=== PATIENT | female | born 1995 | race Caucasian/White ===

== ENCOUNTER 2022-05-22 17:50 | Outpatient (CLI) | payer BC, SELFPAY ==
[2022-05-22 18:05] LABS: Hematocrit 39.6 % (37.0-47.0); Hemoglobin 11.8 g/dL (12.0-15.0); Mean Corpuscular HGB Conc 29.8 g/dl (32-36); Mean Corpuscular Hemoglobin 22.9 pg (26-34); Mean Corpuscular Volume 76.9 fl (80-100); Mean Platelet Volume 9.5 fl (7.4-10.4); Platelet Count Result 290 k/mm3 (150-375); Red Blood Count 5.15 M/mm3 (4.2-5.4); Red Cell Distribution Width 15.2 % (11.5-14.5); White Blood Count 10.8 K/mm3 (4.5-10.0)
[2022-05-22 18:31] LABS: Beta HCG Quantitative < 2.39 mIU/ML
== END 2022-05-22 17:51 | disposition home or self-care (01) ==
PROVIDERS: PCP Internal Medicine; Visit Provider Obstetrics & Gynecology
DX: N92.6 Irregular menstruation, unspecified (principal)
CPT/HCPCS: 36415; 84702; 85027

== ENCOUNTER → 2022-09-23 11:32 | Outpatient (CLI) | payer BC, SELFPAY ==
--- NOTE | ~2022-09-23 | XR_ITS ---
EXAMINATION: XR chest 2V 09/23/2022 11:44 INDICATION: Cough with shortness of breath PROCEDURE: 2 view chest COMPARISON: No prior studies for comparison. FINDINGS: The lungs are clear. The cardiomediastinal silhouette is within normal limits. There are no pleural effusions. There is no pneumothorax suspected. IMPRESSION: 1: NO ACUTE CARDIOPULMONARY DISEASE. Reviewed, dictated and finalized at location L. ER PRESS SUPERVISOR
== END ==
PROVIDERS: PCP Nurse Practitioner; Visit Provider Nurse Practitioner
DX: R05.9 Cough, unspecified (principal); R06.02 Shortness of breath
CPT/HCPCS: 71046

== ENCOUNTER 2022-10-07 08:32 | Emergency (ER) | payer BC, SELFPAY ==
[2022-10-07 08:43] VITALS: BP 107/85; PULSE 129; RESP 16; TEMP 37.1; O2SAT 100
--- NOTE | 2022-10-07 08:53 | ED.URI ---
HPI - URI/Sore Throat General Chief Complaint: Upper Respiratory Infection Stated Complaint: cough,congestion,chest pain when coughing Time Seen by Provider: 10/07/22 08:53 Source: patient Mode of arrival: ambulatory Limitations: no limitations History of Present Illness HPI Narrative: Patient is a 27-year-old female presenting with congestion and cough. Was seen on the with cough symptoms and was given a Medrol Dosepak. Patient states cough improved but never went away. This morning patient complaining of increased congestion and productive cough, following a headache last night. Denies any sore throat, ear pain, fever and chills Related Data Allergies Allergy/AdvReac Type Severity Reaction Status Date / Time diphenhydramine Allergy Severe throat Verified 10/07/22 08:54 [From Maura] gilmar treviño Review of Systems Review of Systems: All systems reviewed & are unremarkable except as noted in HPI and below Constitutional: Constitutional: Denies body ache(s), Denies fever(s), Denies headache(s), Denies malaise and Denies weakness Eyes: Eyes: Reports no additional eye complaints and Denies loss of vision ENT: Reports system reviewed and no additional complaints, except as documented, Denies otalgia, Reports headache(s), Reports nasal congestion, Denies sinus pain and Denies sore throat Cardiovascular: Cardiovascular: Reports no additional cardiovascular complaints, Denies chest pain, Denies irregular heart rhythm and Denies dyspnea Respiratory: Respiratory: Reports no additional respiratory complaints, Reports cough and Denies dyspnea Gastrointestinal: Gastrointestinal: Reports no additional gastrointestinal complaints, Denies abdominal pain, Denies melena, Denies hematochezia, Denies diarrhea, Denies nausea and Denies vomiting Musculoskeletal: Musculoskeletal: Reports no additional musculoskeletal complaints, Denies back pain, Denies myalgias and Denies arthralgias Integumentary/Breasts: Skin/Breast: Reports system reviewed and no additional complaints, except as docu, Denies pruritus and Denies rash Neurologic: Reports system reviewed and no additional complaints, except as documented, Denies headache(s), Denies loss of vision and Denies weakness Psychiatric: Psychiatric: Reports no additional psychiatric complaints PMFSH Past Medical History Medical History Dog bite of calf Encounter for IUD insertion Fracture closed, fibula, shaft Hypothyroid Iron (Fe) deficiency anemia Kidney cyst, acquired Migraine Pap smear of cervix shows high risk HPV present Thyroid nodule Surgical History Surgical History History of colposcopy (~05/07/22) ECC Benign Family History Family History Father Diabetes mellitus Depression Mother Thyroid disorder Endometriosis Social History Social History Smoking status: Former smoker Tobacco type: cigarettes Smoking end date: 08/03/16 Alcohol intake: current Drinks per week: 2 Alcohol use details: wine Substance use: never Substance use type: does not use Lack of Transportation: No Lack of Food: Sometimes True Current Housing: I Have Housing Concerned About Future Housing: No Difficulty Paying Gas/Electric Bills: YES Difficulty Paying for Meds: No Currently Unemployed: No Education: High School Diploma/GED Difficulty w/ Childcare or Family Care: No Living arrangements: other Additional living arrangements comments: Engaged 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
== END 2022-10-07 09:07 | disposition home or self-care (01) ==
PROVIDERS: Emergency Provider Nurse Practitioner Family; PCP Nurse Practitioner
DX: J20.9 Acute bronchitis, unspecified (principal); E03.9 Hypothyroidism, unspecified; Z87.891 Personal history of nicotine dependence
CPT/HCPCS: 99213; G0463

== ENCOUNTER 2023-11-04 08:38 | Outpatient (CLI) | payer BC, SELFPAY ==
[2023-11-04 12:18] LABS: Basophils Percent Auto 0.4 % (0.2-1.2); Eosinophils Absolute Auto 0.3 K/mm3 (0-0.3); Eosinophils Percent Auto 2.6 % (0-4.4); Hematocrit 40.6 % (37.0-47.0); Hemoglobin 12.7 g/dL (12.0-15.0); Immature Granulocyte Absolute 0.04 K/mm3 (0.00-0.031); Immature Granulocyte Percent A 0.4 % (0-0.5); Lymphocytes Absolute Auto 2.93 K/mm3 (0.9-3.2); Lymphocytes Percent Auto 30.3 % (18.3-44.2); Mean Corpuscular HGB Conc 31.3 g/dl (32-36); Mean Corpuscular Volume 83.2 fl (80-100); Mean Platelet Volume 10.3 fl (7.4-10.4); Monocytes Absolute Auto 0.5 K/mm3 (0.1-0.6); Monocytes Percent Auto 5.3 % (2.6-8.5); Neutrophils Absolute Auto 5.9 K/mm3 (1.3-6.7); Platelet Count Result 226 k/mm3 (150-375); Red Blood Count 4.88 M/mm3 (4.2-5.4); Red Cell Distribution Width 13.9 % (11.5-14.5); White Blood Count 9.7 K/mm3 (4.5-10.0)
[2023-11-04 12:27] LABS: Alanine Aminotransferase 12 U/L (6-35); Albumin Level 4.4 g/dL (3.5-5.1); Alkaline Phosphatase 97 U/L (38-126); Anion Gap 4 mmol/L (4-12); Aspartate Amino Transferase 36 U/L (14-36); Bilirubin,Total 0.6 mg/dL (0.2-1.3); Blood Urea Nitrogen 19 mg/dL (7-17); Calcium 9.1 mg/dL (8.4-10.2); Carbon Dioxide 27 mmol/L (22-30); Chloride 106 mmol/L (98-107); Cholesterol 170 mg/dL (0-200); Estimated Glomerular Filt Rate > 60; Glucose 93 mg/dL (65-110); HDL Direct 36 mg/dL; Sodium 137 mmol/L (137-145); Triglycerides 174 mg/dL (<150)
[2023-11-04 12:38] LABS: LDL Cholesterol Direct 106 mg/dL
[2023-11-04 22:25] LABS: Iron 63 ug/dL (37-170)
[2023-11-04 22:35] LABS: Percent Iron Saturation 15 % (20-50)
[2023-11-05 00:38] LABS: Hemoglobin A1C 4.7 % (<5.7)
== END 2023-11-04 08:39 | disposition home or self-care (01) ==
LOC: ANHGOSHLAB 08:39
PROVIDERS: PCP Nurse Practitioner; Visit Provider Clinical Nurse Specialist
DX: D50.8 Other iron deficiency anemias (principal); G43.909 Migraine, unspecified, not intractable, without status migrainosus; R53.83 Other fatigue; Z13.220 Encounter for screening for lipoid disorders; Z13.29 Encounter for screening for other suspected endocrine disorder; R74.8 Abnormal levels of other serum enzymes
CPT/HCPCS: 36415; 80053; 80061; 82728; 83036; 83540; 83550; 84443; 85025

== ENCOUNTER 2023-11-10 14:52 | Outpatient (CLI) | payer BC, SELFPAY ==
[2023-11-10 19:50] LABS: Vitamin D 25 Hydroxy 27.8 ng/mL
[2023-11-10 21:03] LABS: Folic Acid 13.9 ng/mL (2.76->20)
== END 2023-11-10 14:53 | disposition home or self-care (01) ==
LOC: ANHGOSHLAB 14:53
PROVIDERS: PCP Nurse Practitioner; Visit Provider Nurse Practitioner
DX: D64.9 Anemia, unspecified (principal); E53.8 Deficiency of other specified B group vitamins; E55.9 Vitamin D deficiency, unspecified
CPT/HCPCS: 36415; 82306; 82607; 82746

== ENCOUNTER 2024-01-21 10:37 | Outpatient (CLI) | payer BC, SELFPAY ==
[2024-01-22 11:53] LABS: Prolactin 4.9 ng/mL
[2024-01-26 18:09] LABS: Anti Mullerian Hormone,Female 5.53 ng/mL (0.69-13.39)
== END 2024-01-21 10:38 | disposition home or self-care (01) ==
LOC: ANHGOSHLAB 10:38
PROVIDERS: PCP Nurse Practitioner; Visit Provider Obstetrics & Gynecology
DX: N91.2 Amenorrhea, unspecified (principal)
CPT/HCPCS: 36415; 84146; 84443

== ENCOUNTER 2024-02-12 15:35 | Outpatient (CLI) | payer BC, SELFPAY ==
[2024-02-12 15:52] LABS: Hematocrit 35.6 % (37.0-47.0); Hemoglobin 11.3 g/dL (12.0-15.0); Mean Corpuscular HGB Conc 31.7 g/dl (32-36); Mean Corpuscular Hemoglobin 25.9 pg (26-34); Mean Corpuscular Volume 81.5 fl (80-100); Mean Platelet Volume 9.7 fl (7.4-10.4); Platelet Count Result 223 k/mm3 (150-375); Red Blood Count 4.37 M/mm3 (4.2-5.4); White Blood Count 10.8 K/mm3 (4.5-10.0)
== END 2024-02-12 15:36 | disposition home or self-care (01) ==
LOC: ANHLAB 15:36
PROVIDERS: PCP Nurse Practitioner; Visit Provider Obstetrics & Gynecology
DX: N92.6 Irregular menstruation, unspecified (principal)
CPT/HCPCS: 36415; 85027

== ENCOUNTER 2024-02-18 01:54 | Day surgery (SDC) | payer BC, SELFPAY ==
[2024-02-11 13:17] VITALS: BMI 32.6
--- NOTE | 2024-02-11 13:18 | PC.NURSE ---
Report to the Outpatient Waiting Room, entrance under the green pavilion located off [facility], at time _0845_ on date _[id number]_. Planned Procedure Time: _1045_. Time changes happen often and if your time is changed the preop area will call you the afternoon before. - You and your visitor will be asked to self-screen and do not enter if you have any COVID symptoms. - A mask is optional within the hospital at this time. Patients may have clear liquids (water, carbonated beverages, clear teas, apple juice) until 3 hours prior to surgery with a maximum of 20 ounces. - No food from midnight until time of surgery Take the following medications with a SIP of water the morning of surgery: ____None DO NOT STOP ANY OF YOUR OTHER PRESCRIPTION MEDICATIONS PRIOR TO SURGERY ?EXCEPT THE FOLLOWING Medications to discontinue per physician Vitamins and fish oil Date to take last ulgn____[phone] Please no make-up, nail grenadian, hairspray, perfume, deodorant, or body powder the day of surgery. No jewelry (including any body piercings) or valuables the day of surgery, leave them at home. Please take a shower or bath the night before, or the morning of, surgery with an antibacterial soap. Wear comfortable, loose fitting clothing. - Jewelry must be removed prior to entering the operating room. Rings and piercings that are not removed may be cut off. - The hospital will not accept responsibility for valuables. - Please leave all valuables, including medications, at home the day of surgery. If you are going home after surgery, a licensed pick up and delivery driver must drive you home. - NO public transportation without another adult if you receive anesthesia. - We recommend that an adult stay with you for 24 hours following discharge. - We also recommend that you do not drive, make important decision, drink alcoholic beverages, or take any drugs that were not prescribed by your health care provider for at least 24 hours after your discharge time. Follow any additional instructions given to you from your surgeon. If you or anyone in your household have experienced Covid symptoms in the past week, please notify your surgeon or the nurse liaison at the phone number below for possible testing. Telephone instructions given to __Landongary___and asked if any additional questions and then verbalized understanding. Patient advised to call surgeon office or pre surgery nurse liaison [phone] if any additional questions.
--- NOTE | 2024-02-16 17:36 | PM.IMHP ---
H&P: HPI History of Present Illness Date/Time: 02/16/24 17:36 28-year-old 1 para 0010 female presents for evaluation of irregular vaginal bleeding and endometrial hypertrophy. IUD was removed approximately 6 months ago and since that time had just 2 cycles, was given progesterone as withdrawal bleed and has been bleeding fairly heavily since that time. Ultrasound revealed mildly enlarged uterus with endometrial hypertrophy of 15mm. She and her are also interested in so after this procedure and if all is normal will likely initiate letrozole therapy. Chief Complaint: Menorrhagia Review of Systems Review of Systems: All systems reviewed & are unremarkable except as noted in HPI and below PMFSH Past Medical History Medical History Dog bite of calf Ear infection Encounter for IUD insertion Encounter for removal of intrauterine contraceptive device Fracture closed, fibula, shaft Hypothyroid Iron (Fe) deficiency anemia Kidney cyst, acquired Migraine Pap smear of cervix shows high risk HPV present Thyroid nodule Surgical History Surgical History History of colposcopy (~05/07/22) ECC Benign History of gynecological procedure (05/23/22) benny iud insertion Benny IUD removal Family History Family History Father Diabetes mellitus Depression Mother Thyroid disorder Endometriosis Social History Social History Smoking packs per day: 0.5 Smoking cigarettes per day: 10.0 Years smoked: 2 Smoking pack-years: 1.00 Smoking status: Former smoker Tobacco type: cigarettes Second hand tobacco smoke exposure: Yes Smoking end date: 02/10/23 Alcohol intake: current Drinks per week: 1 Alcohol use details: wine Substance use: never Substance use type: does not use Do You Feel Safe in your Home?: Yes Lack of Transportation: No Lack of Food: Never True Current Housing: I Have Housing Concerned About Future Housing: No Difficulty Paying Gas/Electric Bills: YES Difficulty Paying for Meds: No Currently Unemployed: No Education: High School Diploma/GED Difficulty w/ Childcare or Family Care: No Living arrangements: with family Additional living arrangements comments: 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 Gender identity (if verbalized by the patient): Female Sexual Orientation (if Verbalized by the Patient): Straight or Heterosexual Spiritual care concerns: No Agree to blood products: Yes Meds Home Medications and Allergies Home Medications Medication Instructions Recorded Confirmed Type vit no.[id number] 1 tablet PO DAILY 11/10/23 02/11/24 History [ Plus Vitamin-Mineral] cholecalciferol (vitamin D3) 50 50 mcg PO DAILY 12/30/23 02/11/24 History mcg (2,000 unit) capsule omega-3 fatty acids 500 mg capsule 500 mg PO DAILY 12/30/23 02/11/24 History Allergies Allergy/AdvReac Type Severity Reaction Status Date / Time diphenhydramine Allergy Severe throat Verified 02/11/24 13:11 [From Benadryl] gilmar treviño Exam Const: General: cooperative and healthy appearing Resp: Effort & Inspection: normal respiratory effort Auscultation: clear to auscultation bilaterally Cardio: Rate: regular rate Rhythm: regular rhythm GI: Inspection: normal to inspection Auscultation: normal bowel sounds : External Female Exam: normal external appearance Speculum Exam - Vagina: normal appearance of the vagina Speculum Exam - Cervix: normal appearance of the cervix Bimanual exam- vagina & uterus: enlarged ( 8-10 week size) Bimanual Exam- Adnexa, other: normal adnexae Assessment and Plan Assessment and plan (1) Menorrhagi
--- NOTE | 2024-02-18 08:55 | WPDHPUPDATE1 ---
History and Physical Update Update Date/Time: 02/18/24 08:55 History and Physical has been reviewed, including an updated exam of the patient. There are NO changes in the patient's condition. Risks, benefits, and alternatives have been discussed and questions answered. Patient agrees to proceed with procedure.
[2024-02-18] MEDS: ACETAMINOPHEN 500 MG TABLET 1000 MG PO (09:30)
[2024-02-18] MEDS: LACTATED RINGERS 1,000 ML 30 ML IV CONT (09:30)
--- NOTE | 2024-02-18 10:18 | WPDANESEPPF ---
Anes - Initial Pre Proc Eval Procedure: Operation Date: 02/18/24 10:45 Proposed Procedures p Hysteroscopy Dilation and Curettage - Neto Smith MD Date/Time: 02/18/24 10:18 Surgeon: Neto Smith MD Pre Op Diagnosis: Endometrial Hyperplasia Patient Data Age: 28 Gender: F Height: 1.47 m Weight: 70.9 kg Allergies Allergy/AdvReac Type Severity Reaction Status Date / Time diphenhydramine Allergy Severe throat Verified 02/11/24 13:11 [From Benadryl] swells, hives Home Medications Medication Instructions Recorded Confirmed Type vit no.[id number] 1 tablet PO DAILY 11/10/23 02/11/24 History [ Plus Vitamin-Mineral] cholecalciferol (vitamin D3) 50 50 mcg PO DAILY 12/30/23 02/11/24 History mcg (2,000 unit) capsule omega-3 fatty acids 500 mg capsule 500 mg PO DAILY 12/30/23 02/11/24 History Patient hx anesthesia problems: none Family hx anesthesia problems: none Results Review: All pre-operative results and documents have been reviewed as part of the pre-operative evaluation. [facility] Past Medical History Medical History Dog bite of calf Ear infection Encounter for IUD insertion Encounter for removal of intrauterine contraceptive device Fracture closed, fibula, shaft Hypothyroid Iron (Fe) deficiency anemia Kidney cyst, acquired Migraine Pap smear of cervix shows high risk HPV present Thyroid nodule Surgical History Surgical History History of colposcopy (~05/07/22) ECC Benign History of gynecological procedure (05/23/22) benny iud insertion Benny IUD removal Family History Family History Father Diabetes mellitus Depression Mother Thyroid disorder Endometriosis Social History Social History Smoking packs per day: 0.5 Smoking cigarettes per day: 10.0 Years smoked: 2 Smoking pack-years: 1.00 Smoking status: Former smoker Tobacco type: cigarettes Second hand tobacco smoke exposure: Yes Smoking end date: 02/10/23 Alcohol intake: current Drinks per week: 1 Alcohol use details: wine Substance use: never Substance use type: does not use Do You Feel Safe in your Home?: Yes Lack of Transportation: No Lack of Food: Never True Current Housing: I Have Housing Concerned About Future Housing: No Difficulty Paying Gas/Electric Bills: YES Difficulty Paying for Meds: No Currently Unemployed: No Education: High School Diploma/GED Difficulty w/ Childcare or Family Care: No Living arrangements: with family Additional living arrangements comments: 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 Gender identity (if verbalized by the patient): Female Sexual Orientation (if Verbalized by the Patient): Straight or Heterosexual Spiritual care concerns: No Agree to blood products: Yes Anes - Eval Final PreProcedure Day of Procedure 02/18/24 10:18 Patient weight: obese Heart: regular rate and rhythm Lungs: clear to auscultation Airway: Mallampati scale class II Neurological: alert and oriented Last oral intake: >/= 8 hours ASA classification: II Emergent: no Anesthetic plan: proceed Anesthesia type and monitoring: general GIVS and standard monitoring Results Review: All pre-operative results and documents have been reviewed as part of the pre-operative evaluation. Ex smoker, quit approx 2022. Informed Consent: The patient's anesthetic plan and its attendant risks and benefits were discussed with the patient/family/POA. Questions were solicited and answers provided to the satisfaction of the patient/family/POA.
[2024-02-18 10:30] VITALS: BP 103/71; PULSE 78; RESP 14; TEMP 36.4; O2SAT 100
[2024-02-18] MEDS: KETOROLAC 15 MG/ML VIAL (*BKC) IV PUSH (10:53)
--- NOTE | 2024-02-18 11:07 | P.OP_ITS ---
Procedure Note - Detailed Date of Procedure 02/18/24 Pre-op Diagnosis 1. Menorrhagia 2. Endometrial hypertrophy on ultrasound Post-op Diagnosis Same Procedure Performed 1. Hysteroscopy with uterine curettings Surgeon Neto Smith MD Anesthesia MAC Indications Thickened endometrial cavity Findings Thickened tissue with small polypoid appearing lesions Description of Procedure Patient prepped and draped in usual manner for this procedure. Cervix was dilated to allow the hysteroscope be placed which showed multiple small polypoid appearing lesions in the thickened endometrial cavity. Curettings of this t issue were as obtained. There was no significant bleeding at this point the procedure was considered terminated. Drains No Packing No Pathology Yes Complications No immediate complications Condition Stable Disposition PACU [facility] Billing Surgery - Charge Forward: Surgery Billing
[2024-02-18 11:12] VITALS: BP 119/83; PULSE 95; RESP 16; O2SAT 98
[2024-02-18 11:45] VITALS: BP 116/76; PULSE 76; RESP 16
[2024-02-18] MEDS: oxyCODONE HCL (*CRX) 5 MG TAB IR PO (12:06)
[2024-02-18 12:15] VITALS: BP 97/70; PULSE 71; RESP 16
[2024-02-18 12:24] VITALS: BP 113/73; PULSE 74; RESP 16; O2SAT 100
== END 2024-02-18 12:25 | disposition home or self-care (01) ==
PROVIDERS: PCP Nurse Practitioner; Visit Provider Obstetrics & Gynecology
PROC: 0U5B8ZZ Destruction of Endometrium, Via Natural or Artificial Opening Endoscopic (ICD-10-PCS; CPT 58563; principal; 2024-02-18 10:45)
DX: N85.01 Benign endometrial hyperplasia (principal); N92.0 Excessive and frequent menstruation with regular cycle; Z87.891 Personal history of nicotine dependence; E03.9 Hypothyroidism, unspecified
CPT/HCPCS: 58558; 88305; A9270; J1100; J1885; J2250; J2405; J2704; J3010; J7120

== ENCOUNTER 2024-10-03 16:21 | Outpatient (CLI) | payer BC, SELFPAY ==
[2024-10-03 20:50] LABS: Beta HCG Quantitative 60.68 mIU/ML
== END 2024-10-03 16:22 | disposition home or self-care (01) ==
LOC: ANHGOSHLAB 16:24
PROVIDERS: PCP Nurse Practitioner; Visit Provider Obstetrics & Gynecology
DX: N91.2 Amenorrhea, unspecified (principal)
CPT/HCPCS: 36415; 84702

== ENCOUNTER 2024-10-05 08:22 | Outpatient (CLI) | payer BC, SELFPAY ==
--- OUTSIDE RECORDS SUMMARY | 2024-10-05 08:37 | XMS_ITS | Clinical Summary ---
Author Organization [facility] Address [address] [place] [id number] Care Team Providers Care Visual Merchandiser Name Role Phone None, Provider MD Primary Care Provider Unavaila ble Social History Tobacco Use Types Packs/Day Years Used Date Smoking Tobacco: Never Assessed Comments Unknown Sex and Gender Information Value Date Recorded Sex Assigned at Not on file Legal Sex Female 11:05 AM FUR SCRAPER Gender Identity Not on file Sexual Orientation Not on file Plan of Treatment Health Maintenance Due Date Last Done Comments Cervical Cancer Screening Pa p Smear (Age 21 to 29) Every 3 Years 1997 Cervical Cancer Screening 1997 Annual Physical 2000 Hepatitis C 2015 DTaP, Tdap and Td Vaccines ( 1 - Tdap) 2016 Hepatitis B Vaccines (1 of 3 - 19+ 3-dose series) 2016 COVID-19 Vaccine (2023-2 5 season) 2024 Influenza Adult (#1) 2024 HPV Vaccines Aged Out No longer eligi ble based on patient's age to complete this topic Meningococcal B Vaccine Aged Out No l onger eligible based on patient's age to complete this topic Meningococcal Vaccine Aged Out No shannan nikolay eligible based on patient's age to complete this topic Pneumococcal Vaccine: Pediat rics (0 to 5 Years) and At-Risk Patients (6 to 64 Years) Aged Out No longer eligible b ased on patient's age to complete this topic RSV Immunizations Under 20 Months Aged Out No longer eligible based on patient's age to complete this topic Insurance [facility] Care Teams Visual Merchandiser Relationship Specialty Start Date End Date None, Provider, MD PCP - General UNKNOWN PHYSICIAN SPECIALTY 04/14/23
[2024-10-05 13:12] LABS: Beta HCG Quantitative 114.79 mIU/ML
== END 2024-10-05 08:23 | disposition home or self-care (01) ==
LOC: ANHGOSHLAB 08:23
PROVIDERS: PCP Nurse Practitioner; Visit Provider Obstetrics & Gynecology
DX: N91.0 Primary amenorrhea (principal)
CPT/HCPCS: 36415; 84702

== ENCOUNTER 2024-10-10 09:41 | Outpatient (CLI) | payer BC, SELFPAY ==
--- OUTSIDE RECORDS SUMMARY | 2024-10-10 10:58 | XMS_ITS | Clinical Summary ---
Author Organization [facility] Address [address] [place] [id number] Care Team Providers Care Livestock Laborer Name Role Phone None, Provider MD Primary Care Provider Unavaila ble Social History Tobacco Use Types Packs/Day Years Used Date Smoking Tobacco: Never Assessed Comments Unknown Sex and Gender Information Value Date Recorded Sex Assigned at Not on file Legal Sex Female 11:[address]PRETER Gender Identity Not on file Sexual Orientation [...] patient's age to complete this topic Insurance [facility] Care Teams Livestock Laborer Relationship Specialty Start Date End Date None, Provider, MD PCP - General UNKNOWN PHYSICIAN SPECIALTY 04/14/23
[2024-10-10 14:36] LABS: Beta HCG Quantitative 84.74 mIU/ML
[2024-10-12 01:43] LABS: Progesterone 2.2 ng/mL
== END 2024-10-10 09:42 | disposition home or self-care (01) ==
LOC: ANHGOSHLAB 09:42
PROVIDERS: PCP Nurse Practitioner; Visit Provider Obstetrics & Gynecology
DX: N92.6 Irregular menstruation, unspecified (principal)
CPT/HCPCS: 36415; 84144; 84702

== ENCOUNTER 2024-11-01 09:11 | Outpatient (CLI) | payer BC, SELFPAY ==
--- OUTSIDE RECORDS SUMMARY | 2024-11-01 09:41 | XMS_ITS | Clinical Summary ---
Author Organization [facility] Address [address] [place] [id number] Care Team Providers Care Country Manager Name Role Phone None, Provider MD Primary Care Provider Unavaila ble Social History Tobacco Use Types Packs/Day Years Used Date Smoking Tobacco: Never Assessed Comments Unknown Sex and Gender Information Value Date Recorded Sex Assigned at Not on file Legal Sex Female 11:05 AM INSOLE AND OUTSOLE SPLITTER Gender Identity Not on file Sexual Orientation [...] 2016 COVID-19 Vaccine (2023-2 5 season) 2024 HPV Vaccines Aged Out No longer [...] patient's age to complete this topic Insurance [facility] Care Teams Country Manager Relationship Specialty Start Date End Date None, Provider, PCP - General UNKNOWN PHYSICIAN SPECIALTY 04/14/23
[2024-11-01 13:59] LABS: Basophils Percent Auto 0.4 % (0.2-1.2); Eosinophils Absolute Auto 0.2 K/mm3 (0-0.3); Eosinophils Percent Auto 2.2 % (0-4.4); Hematocrit 31.5 % (37.0-47.0); Hemoglobin 9.5 g/dL (12.0-15.0); Immature Granulocyte Absolute 0.04 K/mm3 (0.00-0.031); Immature Granulocyte Percent A 0.6 % (0-0.5); Lymphocytes Absolute Auto 2.18 K/mm3 (0.9-3.2); Lymphocytes Percent Auto 30.6 % (18.3-44.2); Mean Corpuscular HGB Conc 30.2 g/dl (32-36); Mean Corpuscular Hemoglobin 24.7 pg (26-34); Mean Corpuscular Volume 81.8 fl (80-100); Mean Platelet Volume 9.9 fl (7.4-10.4); Monocytes Absolute Auto 0.4 K/mm3 (0.1-0.6); Monocytes Percent Auto 5.8 % (2.6-8.5); Neutrophils Absolute Auto 4.3 K/mm3 (1.3-6.7); Neutrophils Percent Auto 60.4 % (45.5-73.1); Platelet Count Result 227 k/mm3 (150-375); Red Blood Count 3.85 M/mm3 (4.2-5.4); Red Cell Distribution Width 14.9 % (11.5-14.5); White Blood Count 7.1 K/mm3 (4.5-10.0)
[2024-11-01 18:15] LABS: Beta HCG Quantitative 147.48 mIU/ML
== END 2024-11-01 09:12 | disposition home or self-care (01) ==
LOC: ANHGOSHLAB 09:11
PROVIDERS: PCP Nurse Practitioner; Visit Provider Obstetrics & Gynecology
DX: O03.4 Incomplete spontaneous abortion without complication (principal)
CPT/HCPCS: 36415; 84702; 85025

== ENCOUNTER 2024-11-02 10:07 | Outpatient (CLI) | payer BC, SELFPAY ==
[2024-11-02 13:24] LABS: Hematocrit 30.6 % (37.0-47.0); Hemoglobin 9.5 g/dL (12.0-15.0); Mean Corpuscular Volume 80.5 fl (80-100); Mean Platelet Volume 9.9 fl (7.4-10.4); Platelet Count Result 239 k/mm3 (150-375); Red Cell Distribution Width 14.8 % (11.5-14.5); White Blood Count 9.4 K/mm3 (4.5-10.0)
[2024-11-02 13:27] LABS: Alanine Aminotransferase 13 U/L (6-35); Albumin Level 4.3 g/dL (3.5-5.1); Alkaline Phosphatase 92 U/L (38-126); Anion Gap 6 mmol/L (4-12); Aspartate Amino Transferase 34 U/L (14-36); Bilirubin,Total 0.8 mg/dL (0.2-1.3); Blood Urea Nitrogen 15 mg/dL (7-17); Calcium 8.7 mg/dL (8.4-10.2); Carbon Dioxide 26 mmol/L (22-30); Chloride 104 mmol/L (98-107); Estimated Glomerular Filt Rate > 60; Glucose 86 mg/dL (65-110); Potassium 4.3 mmol/L (3.4-5.0); Sodium 136 mmol/L (137-145)
[2024-11-02 13:35] LABS: Beta HCG Quantitative 111.75 mIU/ML
== END 2024-11-02 10:08 | disposition home or self-care (01) ==
LOC: ANHGOSHLAB 10:09
PROVIDERS: PCP Nurse Practitioner; Visit Provider Obstetrics & Gynecology
DX: O00.90 Unspecified ectopic pregnancy without intrauterine pregnancy (principal); N94.89 Other specified conditions associated with female genital organs and menstrual cycle; Z3A.00 Weeks of gestation of pregnancy not specified
CPT/HCPCS: 36415; 80053; 84702; 85027

== ENCOUNTER 2024-11-05 09:44 | Outpatient (CLI) | payer BC, SELFPAY ==
--- OUTSIDE RECORDS SUMMARY | 2024-11-05 09:54 | XMS_ITS | Clinical Summary ---
Author Organization [facility] Address [address] [place] [address] Care Team Providers Care Craft Worker Name Role Phone None, Provider MD Primary Care Provider Unavaila ble Social History Tobacco Use Types Packs/Day Years Used Date Smoking Tobacco: Never Assessed Comments Unknown Sex and Gender Information Value Date Recorded Sex Assigned at Not on file Legal Sex Female 11:05 AM GROUND SUPPORT EQUIPMENT FITTER Gender Identity Not on file Sexual Orientation [...] patient's age to complete this topic Insurance [facility] Care Teams Craft Worker Relationship Specialty Start Date End Date None, Provider, PCP - General UNKNOWN PHYSICIAN SPECIALTY 04/14/23
[2024-11-05 10:41] LABS: Beta HCG Quantitative 81.75 mIU/ML
== END 2024-11-05 09:45 | disposition home or self-care (01) ==
LOC: ANHLAB 09:51
PROVIDERS: PCP Nurse Practitioner; Visit Provider Obstetrics & Gynecology
DX: O00.90 Unspecified ectopic pregnancy without intrauterine pregnancy (principal); Z3A.00 Weeks of gestation of pregnancy not specified
CPT/HCPCS: 36415; 84702

== ENCOUNTER 2024-11-08 09:46 | Outpatient (CLI) | payer BC, SELFPAY ==
--- OUTSIDE RECORDS SUMMARY | 2024-11-08 10:44 | XMS_ITS | Clinical Summary ---
Author Organization [facility] Address [address] [place] [address] Care Team Providers Care Sewage Disposal Worker Name Role Phone None, Provider MD Primary Care Provider Unavaila ble Social History Tobacco Use Types Packs/Day Years Used Date Smoking Tobacco: Never Assessed Comments Unknown Sex and Gender Information Value Date Recorded Sex Assigned at Not on file Legal Sex Female 11:[address] Gender Identity Not on file Sexual Orientation [...] age to complete this topic Insurance [facility] Care Teams Sewage Disposal Worker Relationship Specialty Start Date End Date None, Provider, PCP - General UNKNOWN PHYSICIAN SPECIALTY 04/14/23
[2024-11-08 16:21] LABS: Beta HCG Quantitative 92.97 mIU/ML
== END 2024-11-08 09:47 | disposition home or self-care (01) ==
LOC: ANHGOSHLAB 09:48
PROVIDERS: PCP Nurse Practitioner; Visit Provider Obstetrics & Gynecology
DX: O00.90 Unspecified ectopic pregnancy without intrauterine pregnancy (principal); Z3A.00 Weeks of gestation of pregnancy not specified
CPT/HCPCS: 36415; 84702

== ENCOUNTER 2024-11-11 08:49 | Outpatient (CLI) | payer BC, SELFPAY ==
--- NOTE | ~2024-11-11 | US_ITS ---
Pelvic ultrasound. Clinical History: First trimester , establish dates and viability, examine for ectopic pregn jay Technique: Realtime transabdominal and transvaginal scanning of the pelvis was performed. Color flow Doppler and Doppler spectral analysis were performed. Findings: The uterus is anteverted. The endometrial stripe has a thickness of 8 mm. No intrauterine gestational sac is identified. COMPARISON: 11/02/2024 The right ovary measures 3.0 x 2.2 x 2.8 cm. Suggestion of a heterogeneous masslike lesion adjacent t o the right ovary measuring 5.0 x 2.9 x 4.1 cm, which could reflect hematoma related to ectopic pregn jay in the right fallopian tube. There is a 3.1 cm complex cystic mass in the right adnexal region a s well cm. The left ovary measures 2.9 x 2.0 x 1.4 cm. No significant left ovarian or adnexal mass is seen. There is no evidence of free fluid in the cul de sac. Impression: Findings suspicious for right-sided ectopic , with right adnexal mass adjacent to the right ovary. This could reflect hematoma with underlying gestational sac, with appearance overall similar t o prior exam. No significant free fluid evident at this time.. Reviewed, dictated and finalized at location M. Impression: Findings suspicious for right-sided ectopic , with right adnexal mass adjacent to the right ovary. This could reflect hematoma with underlying gestat ional sac, with appearance overall similar to prior exam. No significant free f luid evident at this time..
== END 2024-11-11 08:50 | disposition home or self-care (01) ==
PROVIDERS: PCP Obstetrics & Gynecology; Visit Provider Obstetrics & Gynecology
DX: O00.90 Unspecified ectopic pregnancy without intrauterine pregnancy (principal)
CPT/HCPCS: 76801; 76817

== ENCOUNTER 2024-11-11 09:17 | Outpatient (CLI) | payer BC, SELFPAY ==
--- OUTSIDE RECORDS SUMMARY | 2024-11-11 09:39 | XMS_ITS | Clinical Summary ---
Author Organization [facility] Address [address] [place] [address] Care Team Providers Care Real Estate Sales Manager Name Role Phone None, Provider MD Primary Care Provider Unavaila ble Social History Tobacco Use Types Packs/Day Years Used Date Smoking Tobacco: Never Assessed Comments Unknown Sex and Gender Information Value Date Recorded Sex Assigned at Not on file Legal Sex Female 11:05 AM LAMBSKIN TRIMMER Gender Identity Not on file Sexual Orientation [...] complete this topic Insurance [facility] Care Teams Real Estate Sales Manager Relationship Specialty Start Date End Date None, Provider, PCP - General UNKNOWN PHYSICIAN SPECIALTY 04/14/23
[2024-11-11 18:52] LABS: Beta HCG Quantitative 47.43 mIU/ML
== END 2024-11-11 09:18 | disposition home or self-care (01) ==
LOC: ANHGOSHLAB 09:19
PROVIDERS: PCP Obstetrics & Gynecology; Visit Provider Obstetrics & Gynecology
DX: O00.90 Unspecified ectopic pregnancy without intrauterine pregnancy (principal)
CPT/HCPCS: 36415; 84702

== ENCOUNTER 2024-11-15 09:33 | Outpatient (CLI) | payer BC, SELFPAY ==
--- OUTSIDE RECORDS SUMMARY | 2024-11-15 10:08 | XMS_ITS | Clinical Summary ---
Author Organization [facility] Address [address] [place] [id number] Care Team Providers Care Inspector Of Dredging Name Role Phone None, Provider MD Primary Care Provider Unavaila ble Social History Tobacco Use Types Packs/Day Years Used Date Smoking Tobacco: Never Assessed Comments Unknown Sex and Gender Information Value Date Recorded Sex Assigned at Not on file Legal Sex Female 11:05 AM NUCLEAR MEDICINE MEDICAL DIRECTOR Gender Identity Not on file Sexual Orientation [...] 5 Years) and At-Risk Patients (6 to 49 Years) Aged Out No longer eligible b ased on patient's age to complete this topic RSV Immunizations Under 20 Months Aged Out No longer eligible based on patient's age to complete this topic Insurance [facility] Care Teams Inspector Of Dredging Relationship Specialty Start Date End Date None, Provider, PCP - General UNKNOWN PHYSICIAN SPECIALTY 04/14/23
[2024-11-15 11:14] LABS: Hematocrit 33.4 % (37.0-47.0); Hemoglobin 9.9 g/dL (12.0-15.0)
[2024-11-15 11:41] LABS: Beta HCG Quantitative 4.77 mIU/ML
== END 2024-11-15 09:34 | disposition home or self-care (01) ==
LOC: ANHGOSHLAB 09:34
PROVIDERS: PCP Obstetrics & Gynecology; Visit Provider Obstetrics & Gynecology
DX: O00.90 Unspecified ectopic pregnancy without intrauterine pregnancy (principal); N92.6 Irregular menstruation, unspecified
CPT/HCPCS: 36415; 84702; 85014; 85018

== ENCOUNTER 2024-11-18 12:49 | Outpatient (CLI) | payer BC, SELFPAY ==
--- NOTE | ~2024-11-18 | US_ITS ---
EXAM: PELVIC ULTRASOUND HISTORY: N91.2 - Amenorrhea, unspecified COMPARISON: 11/11/2024 and 11/02/2024. FINDINGS: UTERUS: 7.8 x 4.4 x 3.8 cm. The endometrial complex measures 6.1 mm. Multiple fibroids are identified within the uterus. The largest is within the subserosal space along the posterior fundus measuring 2.6 x 4.0 x 3.1 cm. RIGHT OVARY: The entirety of the right ovary (including the adjacent mass) measures 4.1 x 5.2 x 4.3 cm (compared w ith 4.1 x 4.6 x 4.3 cm on the previous study). The area of concern on prior ultrasound, felt to represent ectopic is largely unchanged in size but appears to represent increased fluid echogenicity on today's examination. The adjacent focus felt to represent hematoma measures approximately the same size, however the morph ology of this area appears to represent increased fluid echogenicity. LEFT OVARY: The left ovary is unremarkable in echogenicity and size measuring 3.0 x 3.5 x 2.6 cm Dopplerable flow is identified. Free fluid is identified within the cervical canal. No free fluid is identified within the pelvis. IMPRESSION: Findings within the right hemipelvis for which ectopic is suspected with adjacent trauma is largely similar to previous examination although the morphology of these areas has become more fluid like. No free fluid is demonstrated within the pelvis. Reviewed, dictated and finalized at location A. IMPRESSION: Findings within the right hemipelvis for which ectopic is suspected w ith adjacent trauma is largely similar to previous examination although the mor phology of these areas has become more fluidlike. No free fluid is demonstrated within the pelvis.
== END 2024-11-18 12:50 | disposition home or self-care (01) ==
PROVIDERS: PCP Obstetrics & Gynecology; Visit Provider Obstetrics & Gynecology
DX: N91.2 Amenorrhea, unspecified (principal)
CPT/HCPCS: 76801; 76817

== ENCOUNTER 2024-12-07 11:18 | Outpatient (CLI) | payer BC, SELFPAY ==
--- NOTE | ~2024-12-07 | US_ITS ---
US pelvic complete w TV Ordering provider: Neto Smith MD History: . O00.90 - Unspecified ectopic without intrauteri... . Comparison: None. Technique: Transabdominal and endovaginal ultrasound of the pelvis (Doppler ultrasound interrogation techniques used as needed for this exam.) FINDINGS: CERVIX: Normal. UTERUS: Measures 6.1x 4.2x 3.9 cm in length which is within normal limits and is anteverted. No myom etrial masses. ENDOMETRIUM: measuring 17.1 mm. (Note: the premenopausal endometrium may measure up to 16 mm when in the secretory phase.) No endometrial masses, cysts or fluid. CUL DE SAC: No free fluid. RIGHT OVARY: Normal in size measuring 3.3x 3.3x 2.3 cm. Normal echotexture. Doppler vascular flow pre sent. Multiple complex areas with the largest measuring 2.6 x 1.3 x 3.5 cm. LEFT OVARY: Normal in size measuring 4 x 2.4x 2.7 cm. Normal echotexture. Doppler vascular flow prese nt. ADNEXA: Normal. No mass. IMPRESSION: Thickened endometrium. Correlation with the menstrual stage and follow-up advised. Complex structures in the right ovary which may be hemorrhagic cysts. Follow-up advised. Otherwise, normal pelvic ultra sound. Reviewed, dictated and finalized at location A. IMPRESSION: Thickened endometrium. Correlation with the menstrual stage and follow-up advis ed. Complex structures in the right ovary which may be hemorrhagic cysts. Follo w-up advised. Otherwise, normal pelvic ultrasound.
== END 2024-12-07 11:19 | disposition home or self-care (01) ==
PROVIDERS: PCP Obstetrics & Gynecology; Visit Provider Obstetrics & Gynecology
DX: O00.90 Unspecified ectopic pregnancy without intrauterine pregnancy (principal); Z3A.00 Weeks of gestation of pregnancy not specified
CPT/HCPCS: 76830; 76856

== ENCOUNTER 2025-02-28 09:18 | Outpatient (CLI) | payer BC, SELFPAY ==
[2025-02-28 10:30] LABS: Hematocrit 39.0 % (37.0-47.0); Hemoglobin 11.6 g/dL (12.0-15.0); Mean Corpuscular HGB Conc 29.7 g/dl (32-36); Mean Corpuscular Hemoglobin 23.2 pg (26-34); Mean Corpuscular Volume 77.8 fl (80-100); Platelet Count Result 240 k/mm3 (150-375); Red Blood Count 5.01 M/mm3 (4.2-5.4); White Blood Count 8.4 K/mm3 (4.5-10.0)
== END 2025-02-28 09:19 | disposition home or self-care (01) ==
LOC: ANHLAB 09:19
PROVIDERS: Visit Provider Obstetrics & Gynecology
DX: N70.11 Chronic salpingitis (principal)
CPT/HCPCS: 36415; 85027

== ENCOUNTER 2025-03-02 01:23 | Day surgery (SDC) | payer BC, SELFPAY ==
[2025-02-21 11:55] VITALS: BMI 33.1
--- NOTE | 2025-02-21 12:02 | PC.NURSE ---
Report to the Outpatient Waiting Room, entrance under the green pavilion located off [facility], at time _0600__ on date _03/02/25_. Planned Procedure Time: _07__.? Time changes happen often and if your time is changed the preop area will call you the afternoon before. - You and your visitor will be asked to self-screen and do not enter if you have any COVID symptoms. Please call surgeon if you need to reschedule. - A mask is optional within the hospital at this time. Patients may have clear liquids (water, carbonated beverages, clear teas, apple juice) until 3 hours prior to surgery with a maximum of 20 ounces. - No food from midnight until time of surgery and no smoking, or chewing tobacco (or any form of nicotine). No chewing gum, candy or mints. - Infants may have breast milk until 4 hours before surgery, infant formula 6 hours prior to surgery. - Children will be allowed to drink immediately following surgery.? If applicable, please bring a bottle or sippy cup to assist with drinking. Juice, water, soda, and popsicles are readily available.? For infants on formula, please bring formula the day of surgery.? Pacifiers are allowed. Take only the following medications with a SIP of water on the morning of surgery: ___NONE DO NOT STOP ANY OF YOUR OTHER PRESCRIPTION MEDICATIONS PRIOR TO SURGERY EXCEPT THE FOLLOWING Hold all vitamins and supplements for 3 days per anesthesiologist. Medications to discontinue per physician Date to take last dose Please no make-up, nail macanese, hairspray, perfume, deodorant, or body powder the day of surgery.? No jewelry (including any body piercings) or valuables the day of surgery, leave them at home.? Please take a shower or bath the night before, or the morning of, surgery with an antibacterial soap.? Wear comfortable, loose fitting clothing.? Children are encouraged to wear pajamas. - Jewelry must be removed prior to entering the operating room.? Rings and piercings that are not removed may be cut off. - The hospital will not accept responsibility for valuables.? - Please leave all valuables, including medications, at home the day of surgery. If you are going home after surgery, a licensed auto haulaway driver must drive you home.? - NO public transportation without another adult if you receive anesthesia. - We recommend that an adult stay with you for 24 hours following discharge. - We also recommend that you do not drive, make important decision, drink alcoholic beverages, or take any drugs that were not prescribed by your health care provider for at least 24 hours after your discharge time. For Pediatric surgeries, we recommend two adults accompany the child home. Follow any additional instructions given to you from your surgeon. Telephone instructions given to PATIENT__and asked if any additional questions and then verbalized understanding. Patient advised to call surgeon office or pre surgery nurse liaison [phone] if any additional questions.
--- NOTE | 2025-02-27 15:45 | PM.IMHP ---
H&P: HPI History of Present Illness Date/Time: 02/27/25 15:45 29-year-old 2 para 0020 female presents for evaluation of right adnexal mass. Has had 1 miscarriage and 1 ectopic which was treated with methotrexate successfully. After that was seen by reproductive endocrinology and hysterosalpingogram revealed left tube to be normal and right tube consistent with a hydrosalpinx. Their recommendation was laparoscopic evaluation and if hydrosalpinx present salpingectomy. Presents today for laparoscopic evaluation and likely right salpingectomy. Chief Complaint: Right adnexal mass Review of Systems Review of Systems: All systems reviewed & are unremarkable except as noted in HPI and below PMFSH Past Medical History Medical History History of endometrial biopsy (06/28/24) Ear infection Encounter for removal of intrauterine contraceptive device Encounter for IUD insertion Pap smear of cervix shows high risk HPV present Migraine Iron (Fe) deficiency anemia Dog bite of calf Fracture closed, fibula, shaft Kidney cyst, acquired Thyroid nodule Hypothyroid Surgical History Surgical History H/O gynecological procedure (~02/18/24) Hysteroscopy with uterine curettings History of gynecological procedure (05/23/22) benny iud insertion Benny IUD removal History of colposcopy (~05/07/22) ECC Benign Family History Family History Father Diabetes mellitus Depression Mother Thyroid disorder Endometriosis Multiple myeloma Social History Social History Smoking packs per day: 0.5 Smoking cigarettes per day: 10.0 Years smoked: 3 Smoking pack-years: 1.50 Smoking status: Former smoker Tobacco type: cigarettes Second hand tobacco smoke exposure: Yes Smoking end date: 02/10/23 Additional smoking assessment comments: QUIT 2022 Alcohol intake: current Drinks per week: 1 Alcohol use details: 2 PER MONTH Substance use: never Substance use type: does not use Do You Feel Safe in your Home?: Yes Lack of Transportation: No Lack of Food: Never True Current Housing: Decline to Answer Concerned About Future Housing: Decline to Answer Difficulty Paying Gas/Electric Bills: Decline to Answer Difficulty Paying for Meds: Decline to Answer Currently Unemployed: Decline to Answer Education: Decline to Answer Difficulty w/ Childcare or Family Care: Decline to Answer Living arrangements: with family Additional living arrangements comments: 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 Gender identity (if verbalized by the patient): Female Sexual Orientation (if Verbalized by the Patient): Straight or Heterosexual Spiritual care concerns: No Agree to blood products: Yes Meds Home Medications and Allergies Home Medications ?Medication ?Instructions ?Recorded ?Confirmed ?Type vit no.[id number] 1 tablet PO DAILY 11/10/23 02/21/25 History [ Plus Vitamin-Mineral] cholecalciferol (vitamin D3) 50 50 mcg PO DAILY 12/30/23 02/21/25 History mcg (2,000 unit) capsule ibuprofen 600 mg tablet 600 mg PO TID PRN pain 02/21/25 02/21/25 History Allergies Allergy/AdvReac Type Severity Reaction Status Date / Time diphenhydramine (From Allergy Severe throat Verified 02/21/25 11:54 Benadryl) gilmar treviño Exam Const: General: cooperative and healthy appearing Resp: Effort & Inspection: normal respiratory effort Auscultation: clear to auscultation bilaterally Cardio: Rate: regular rate Rhythm: regular rhythm GI: Inspection: normal to inspection Auscultation: normal bowel sounds : External Female Exam: normal external appearance Speculum Exam - Vagina: normal appearance of the vagina Speculum Exam - Cervix: normal appearance of the cervix Bimanual exam- vagina & uterus: normal bimanual exam Bimanual Exam- Adnexa, other: Adnexal mass present ( right adnexa enlarged) Assessment and Plan Assessment and plan (1) Adnexal mass: Code(s): N94.89 - Other specified conditions associated with female genital organs and menstrual cycle Status: Acute Assessment and Plan: 1. Laparoscopic evaluation 2. If hydrosalpinx is noted will remove.
[2025-03-02] VITALS (8 sets, daily range): BP systolic 95–126; BP diastolic 63–90; PULSE 71–105; RESP 16–20; TEMP 36.2–36.9; O2SAT 97–100
--- OUTSIDE RECORDS SUMMARY | 2025-03-02 01:25 | XMS_ITS | Clinical Summary ---
Author Organization [facility] Address [address] [place] [id number] Care Team Providers Care Separator Operator Name Role Phone None, Provider MD Primary Care Provider Unavaila ble Social History Tobacco Use Types Packs/Day Years Used Date Smoking Tobacco: Never Assessed Comments Unknown Sex and Gender Information Value Date Recorded Sex Assigned at Not on file Legal Sex Female 11:05 AM IRON [employer]STER Gender Identity Not on file Sexual Orientation [...] of 3 - 19+ 3-dose series) 2016 HPV Vaccines (1 - 3-dose SCD M series) 2024 COVID-19 Vaccine ( - 2023-2 5 season) 2024 Meningococcal B Vaccine Aged Out No l [...] patient's age to complete this topic Insurance [facility] Care Teams Separator Operator Relationship Specialty Start Date End Date None, Provider, PCP - General UNKNOWN PHYSICIAN SPECIALTY 04/14/23
[2025-03-02] MEDS: KETOROLAC 15 MG/ML VIAL (*BKC) IV PUSH (07:00)
[2025-03-02] MEDS: LACTATED RINGERS 1,000 ML 30 ML IV CONT (07:00)
[2025-03-02] MEDS: ACETAMINOPHEN 500 MG TABLET 1000 MG PO (07:00)
--- NOTE | 2025-03-02 07:19 | WPDANESEPPF ---
Anes - Initial Pre Proc Eval Procedure: Operation Date: 03/02/25 07:30 Proposed Procedures p Diagnostic Laparoscopy, Possible Right Laparoscopic Salpingectomy - Neto Smith MD Date/Time: 03/02/25 07:19 Surgeon: Neto Smith MD Pre Op Diagnosis: Right Hydrosalpinx Patient Data Age: 29 Gender: F Height: 1.47 m Weight: 72 kg Allergies Allergy/AdvReac Type Severity Reaction Status Date / Time diphenhydramine (From Allergy Severe throat Verified 02/21/25 11:54 Benadryl) swells, hives Home Medications ?Medication ?Instructions ?Recorded ?Confirmed ?Type vit no.[id number] 1 tablet PO DAILY 11/10/23 02/21/25 History [ Plus Vitamin-Mineral] cholecalciferol (vitamin D3) 50 50 mcg PO DAILY 12/30/23 02/21/25 History mcg (2,000 unit) capsule ibuprofen 600 mg tablet 600 mg PO TID PRN pain 02/21/25 02/21/25 History Patient hx anesthesia problems: none Family hx anesthesia problems: none Results Review: All pre-operative results and documents have been reviewed as part of the pre-operative evaluation. [facility] Past Medical History Medical History History of endometrial biopsy (06/28/24) Ear infection Encounter for removal of intrauterine contraceptive device Encounter for IUD insertion Pap smear of cervix shows high risk HPV present Migraine Iron (Fe) deficiency anemia Dog bite of calf Fracture closed, fibula, shaft Kidney cyst, acquired Thyroid nodule Hypothyroid Surgical History Surgical History H/O gynecological procedure (~02/18/24) Hysteroscopy with uterine curettings History of gynecological procedure (05/23/22) benny iud insertion Benny IUD removal History of colposcopy (~05/07/22) ECC Benign Family History Family History Father Diabetes mellitus Depression Mother Thyroid disorder Endometriosis Multiple myeloma Social History Social History Smoking packs per day: 0.5 Smoking cigarettes per day: 10.0 Years smoked: 2 Smoking pack-years: 1.00 Smoking status: Former smoker Tobacco type: cigarettes Second hand tobacco smoke exposure: Yes Smoking end date: 02/10/23 Additional smoking assessment comments: QUIT 2022 Alcohol intake: current Drinks per week: 1 Alcohol use details: wine Substance use: never Substance use type: does not use Do You Feel Safe in your Home?: Yes Lack of Transportation: No Lack of Food: Never True Current Housing: Decline to Answer Concerned About Future Housing: Decline to Answer Difficulty Paying Gas/Electric Bills: Decline to Answer Difficulty Paying for Meds: Decline to Answer Currently Unemployed: Decline to Answer Education: Decline to Answer Difficulty w/ Childcare or Family Care: Decline to Answer Living arrangements: with family Additional living arrangements comments: 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 Gender identity (if verbalized by the patient): Female Sexual Orientation (if Verbalized by the Patient): Straight or Heterosexual Spiritual care concerns: No Agree to blood products: Yes Anes - Eval Final PreProcedure Day of Procedure 03/02/25 07:19 Patient weight: obese Heart: regular rate and rhythm Lungs: clear to auscultation Airway: Mallampati scale class II Neurological: alert and oriented Last oral intake: >/= 8 hours ASA classification: II Emergent: no Anesthetic plan: proceed Anesthesia type and monitoring: general and standard monitoring Results Review: All pre-operative results and documents have been reviewed as part of the pre-operative evaluation. Informed Consent: The patient's anesthetic plan and its attendant risks and benefits were discussed with the patient/family/POA. Questions were solicited and answers provided to the satisfaction of the patient/family/POA.
--- NOTE | 2025-03-02 07:19 | WPDHPUPDATE1 ---
History and Physical Update Update Date/Time: 03/02/25 07:19 History and Physical has been reviewed, including an updated exam of the patient. There are NO changes in the patient's condition. Risks, benefits, and alternatives have been discussed and questions answered. Patient agrees to proceed with procedure.
[2025-03-02 07:51] LABS: BEDSIDEPREGUCG Negative (Negative)
--- NOTE | 2025-03-02 07:56 | S_PTH ---
PATIENT: Nicki Oden LOC: [facility] U#:[id number] AGE/SX: 29/F ROOM: RE03/02/[address]: Neto Smith MD : 1995 BED: DIS: 03/02/2025 SPEC #: [id number] RECD: 03/02/25 10:56 STATUS: GRETA REQ #: [id number] LEIDA: 03/02/25 07:[address]: Neto Smith DEPT: [facility] Surgical RECD BY: Yumiko Jason Tissues: A - Fallopian Tube Single Procedures: Gross and Microscopic Level 2 Hematoxylin and Eosin Stain
--- NOTE | 2025-03-02 08:00 | W.PM.PROC2 ---
Procedure Note - Detailed Date of Procedure 03/02/25 Pre-op Diagnosis 1. Right Hydrosalpinx Post-op Diagnosis Same (2. endometriosis) Procedure Performed 1. Diagnostic laparoscopy 2. Laparoscopic right salpingectomy Surgeon Neto Smith MD Anesthesia General Findings Uterus left tube and ovary without abnormality. Right ovary without abnormality. Right fallopian tube clubbed and dilated. Posterior cul-de-sac endometriosis noted Description of Procedure Patient prepped and draped in usual manner for this procedure. Cervical instruments were placed for uterine mobility throughout the case. Abdominal trocars were placed under direct visualization with findings as noted above. The right mesial salpinx was cauterized and cut the tube was removed without difficulty. Rest the pelvis was inspected and other than endometriosis over the ureters bilaterally anatomic abnormalities were not appreciated. At this point the procedure was considered terminated, gas was allowed to escape, trocars removed and incisions approximated using 4-0 Monocryl. Patient was then sent to the recovery room in stable condition. Estimated Blood Loss 10 Drains No Packing No Pathology Yes Complications No immediate complications Condition Stable Disposition PACU [facility] Billing Surgery - Charge Forward: Surgery Billing
[2025-03-02] MEDS: oxyCODONE HCL (*CRX) 5 MG TAB IR PO (09:08)
== END 2025-03-02 09:47 | disposition home or self-care (01) ==
PROVIDERS: Visit Provider Obstetrics & Gynecology
PROC: (CPT 49320; principal; 2025-03-02 07:30)
DX: N70.11 Chronic salpingitis (principal); N80.329 Endometriosis of the posterior cul-de-sac, unspecified depth; Z87.891 Personal history of nicotine dependence; E66.9 Obesity, unspecified; Z68.33 Body mass index [BMI] 33.0-33.9, adult
CPT/HCPCS: 58661; 88302; A9270; J1100; J1885; J2003; J2250; J2405; J2704; J7120